=== PATIENT | male | born 1975 | race Caucasian/White ===

== ENCOUNTER 2017-09-09 19:46 | Emergency (ER) | payer OTHER ==
[~2017-09-09] VITALS: Ht 175.3 cm; Wt 73.5 kg
[~2017-09-09 19:46] MED LIST: ASACOL; CLEOCIN300 MG PO; FOLIC ACID1 MG PO; NORCO 5/3251 TABLET PO; PREDNISONE20 MG PO
[2017-09-09] MEDS ORDERED: ULTRACET1 TABLET PO (23:41)
[2017-09-09 23:53] VITALS: BP 114/74
== END 2017-09-09 23:54 | disposition home or self-care (01) ==
LOC: EME 19:46
PROC: 0QSQXZZ Reposition Right Toe Phalanx, External Approach (ICD-10-PCS; principal; 2017-09-09)
DX: S93.111A Dislocation of interphalangeal joint of right great toe, initial encounter (principal); S92.421A Displaced fracture of distal phalanx of right great toe, initial encounter for closed fracture; W20.8XXA Other cause of strike by thrown, projected or falling object, initial encounter; K50.90 Crohn's disease, unspecified, without complications; F17.200 Nicotine dependence, unspecified, uncomplicated; Z88.6 Allergy status to analgesic agent; Z88.0 Allergy status to penicillin
CPT/HCPCS: 73660; 99281; 99283; S0020